=== PATIENT | male | born 1990 | race African-American/Black ===

== ENCOUNTER 2017-07-18 12:44 | Emergency (ER) | payer SELFPAY ==
[2017-07-18 12:49] VITALS: BP 122/69
--- NOTE | 2017-07-18 13:53 | RADIOLOGY REPORT (SQ) ---
EXAM DESCRIPTION: SHOULDER RIGHT 2 OR MORE VIEWS COMPLETED DATE/TIME: 07/18/2017 1:42 pm REASON FOR STUDY: pain COMPARISON: None. NUMBER OF VIEWS: Three views. TECHNIQUE: Internal rotation, external rotation, and Y view images acquired of the right shoulder. LIMITATIONS: None. FINDINGS: MINERALIZATION: Normal. BONES: No acute fracture or dislocation. No worrisome bone lesions. JOINTS: Slight offset of the distal clavicle with respect to the acromion suggestive of grade 3 separ ation. VISUALIZED LUNGS AND RIBS: No pneumothorax. No rib fracture. SOFT TISSUES: No radiopaque foreign body. OTHER: No other significant finding. IMPRESSION: POSSIBLE GRADE 3 SEPARATION OF THE RIGHT ACROMIOCLAVICULAR JOINT. CORRELATE WITH POINT TENDERNESS. NO FRACTURE. TECHNICAL DOCUMENTATION: JOB ID: [id number] [employer]- All Rights Reserved
--- NOTE | 2017-07-18 14:56 | RADIOLOGY REPORT (SQ) ---
EXAM DESCRIPTION: CLAVICLE RIGHT COMPLETED DATE/TIME: 07/18/2017 2:44 pm REASON FOR STUDY: fall shoulder pain COMPARISON: Right shoulder radiographs performed on the same day. NUMBER OF VIEWS: Two views. TECHNIQUE: Frontal and angled images were acquired of the right clavicle. LIMITATIONS: None. FINDINGS: MINERALIZATION: Normal. BONES: No fracture. Persistent offset of the distal clavicle with respect to the acromion compatible with grade 3 separation. SOFT TISSUES: Associated soft tissue swelling. OTHER: No other significant finding. IMPRESSION: GRADE 3 SEPARATION RIGHT ACROMIOCLAVICULAR JOINT. NO FRACTURE. TECHNICAL DOCUMENTATION: JOB ID: [id number] [employer]- All Rights Reserved
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
== END 2017-07-18 15:55 | disposition home or self-care (01) ==
LOC: ER 12:44
DX: S43.101A Unspecified dislocation of right acromioclavicular joint, initial encounter (principal); V19.9XXA Pedal cyclist (driver) (passenger) injured in unspecified traffic accident, initial encounter; Y93.55 Activity, bike riding; Z88.6 Allergy status to analgesic agent; Z88.5 Allergy status to narcotic agent
CPT/HCPCS: 99283

== ENCOUNTER 2020-09-19 08:53 | Emergency (ER) | payer OTHER ==
[2020-09-19 08:58] VITALS: BP 126/83
[2020-09-19] MEDS ORDERED: IBUPROFEN 800 MG TABLET PO ONE (09:46)
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
== END 2020-09-19 10:46 | disposition home or self-care (01) ==
LOC: ER 08:53
DX: R10.9 Unspecified abdominal pain (principal); F41.9 Anxiety disorder, unspecified; V87.7XXA Person injured in collision between other specified motor vehicles (traffic), initial encounter
CPT/HCPCS: 99282